=== PATIENT | female | born 1975 | race Caucasian/White ===

== ENCOUNTER → 2016-10-28 | Outpatient (CLI) | payer MEDICAID ==
--- NOTE | 2016-10-29 10:51 | ECHOF ---
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 This was a technically good study. Left ventricular wall thickness is normal. Overall left ventricular systolic function is normal with, an EF between 55 - 60 %. The right ventricle is normal in size. LA is midly dilated 29-33ml/m2. The right atrium is normal in size. Aortic valve is trileaflet and is mildly thickened. The mitral valve leaflets are mildly thickened. Mild mitral annular calcification present. Mild mitral regurgitation is present. Mild tricuspid regurgitation present. Trace/mild (physiologic) pulmonic regurgitation. The aortic root size is normal. Normal inferior vena cava with normal inspiratory collapse consistent with estimated right atrial pressure of 5 mmHg. Echo free space may represent effusion or a pericardial fat pad. CONCLUSIONS -------- 1. Sinus rhythm. 2. Mild mitral annular calcification present. 3. Mild mitral regurgitation is present. 4. Mild tricuspid regurgitation present. 5. Trace/mild (physiologic) pulmonic regurgitation. 6. The aortic root size is normal. 7. Normal inferior vena cava with normal inspiratory collapse consistent with estimated right atrial pressure of 5 mmHg. 8. Echo free space may represent effusion or a pericardial fat pad. 9. This was a technically good study. 10. Left ventricular wall thickness is normal. 11. Overall left ventricular systolic function is normal with, an EF between 55 - 60 %. 12. The right ventricle is normal in size. 13. LA is midly dilated 29-33ml/m2. 14. The right atrium is normal in size. 15. Aortic valve is trileaflet and is mildly thickened. 16. The mitral valve leaflets are mildly thickened. DONOR RECRUITER: Gladis Goins RDCS
== END | disposition home or self-care (01) ==
LOC: RADECHMAIN 15:45
PROVIDERS: ATTEND Family Medicine
DX: I08.3 Combined rheumatic disorders of mitral, aortic and tricuspid valves (principal)
CPT/HCPCS: 93306

== ENCOUNTER → 2016-11-14 | Outpatient (CLI) | payer MEDICAID ==
--- NOTE | 2016-11-14 08:48 | MR ---
EXAMINATION TYPE: MR knee LT wo con DATE OF EXAM: 11/14/2016 6:51 AM COMPARISON: NONE HISTORY: 41-year-old female with left knee pain. TECHNIQUE: Multiplanar, multisequence imaging of the left knee is performed without IV contrast. FINDINGS: The ACL, PCL, MCL, and LCL complex appear intact. There is some intermediate signal within the poplit eus tendon suggesting mild tendinosis. There is some degenerative signal seen within the posterior horn and body of the medial meniscus. Sig nal does not contact either articular surface. There is some irregular superficial cartilage loss shania ng the weightbearing aspect of the medial compartment. No high-grade chondral defect. The lateral meniscus is intact and overall lateral compartment articular cartilage volume is maintain ed. Superficial cartilage fissuring along the mid patella within the patellofemoral compartment. Extensor mechanism is intact. Nonspecific subcutaneous soft tissue swelling overlying the patellar tendon and small knee joint effu bettye. No Childers's cyst. There is a small 1.3 x 0.8 cm ganglion cyst seen at the origin of the medial h ead gastrocnemius. Normal artery anatomy and muscle bulk. No suspicious bone marrow replacement. IMPRESSION: 1. No cruciate/collateral ligament tear. There is mild popliteus tendinosis. 2. Some degenerative signal in the posterior horn and body of the medial meniscus without discrete me niscal tear. 3. Mild degenerative cartilage loss along the weightbearing aspect of the medial compartment and also along the mid patella. 4. Small knee joint effusion and nonspecific anterior soft tissue swelling.
== END | disposition home or self-care (01) ==
LOC: RADMRIMAIN 06:11
PROVIDERS: ATTEND Orthopaedic Surgery Sports Medicine
DX: M67.864 Other specified disorders of tendon, left knee (principal); M25.462 Effusion, left knee; M79.89 Other specified soft tissue disorders; R93.7 Abnormal findings on diagnostic imaging of other parts of musculoskeletal system